=== PATIENT | female | born 1960 | race African-American/Black ===

== ENCOUNTER 2017-11-25 17:02 | Emergency (ER) | payer BC ==
[~2017-11-25] VITALS: Ht 157.5 cm; Wt 91.2 kg
[2017-11-25] MEDS ORDERED: COZAAR 25 MG TA25 M1 PO (17:59)
[2017-11-25] MEDS ORDERED: JANUVIA100 MG PO (17:59)
[2017-11-25] MEDS ORDERED: NORVASC5 MG PO (17:59)
[2017-11-25] MEDS ORDERED: GLYBURIDE 2.52.5 MG (17:59)
[2017-11-25] MEDS ORDERED: ZOFRAN ODT4 MG PO ×2 (18:00→23:51)
[2017-11-25] MEDS ORDERED: MIRALAX17 G1 PO (18:00)
[2017-11-25 18:41] LABS: URINE BILIRUBIN 1+ (Negative); URINE BLOOD TRACE (Negative); URINE CLARITY CLEAR; URINE COLOR YELLOW; URINE GLUCOSE-RANDOM* 3+ (Negative); URINE KETONES 3+ (Negative); URINE LEUKOCYTES-REFLEX NEGATIVE (Negative); URINE NITRITE-REFLEX NEGATIVE (Negative); URINE PROTEIN (DIPSTICK) 2+ (Negative); URINE SPECIFIC GRAVITY 1.025 (1.005-1.035); URINE UROBILINOGEN 0.2 E.U./dl (0.2-1.0)
[2017-11-25 18:46] LABS: ICTOTEST (BILI CONFIRMATORY) Negative (Negative)
[2017-11-25 18:53] LABS: BACTERIA-REFLEX None Seen /HPF (None Seen); CASTS None Seen /LPF (None Seen); CRYSTALS None Seen /LPF (None Seen); MUCUS >6 Heavy strn/LPF (None Seen); SQUAMOUS 4-10 Moderate /LPF (0-3); URINE RBC None Seen /HPF (0-2); URINE WBC-REFLEX 0-5 Rare /HPF (0-5); YEAST-REFLEX Present (None Seen)
[2017-11-25 19:27] LABS: ABSOLUTE NEUTROPHILS 6.1 thou/uL (1.4-8.2); BASOPHILS 0.6 % (0.0-2.0); HEMATOCRIT 44.7 % (37.0-47.0); HEMOGLOBIN 15.3 gm/dL (12.0-15.0); LYMPHOCYTES 21.8 % (24.0-44.0); MCH 29.4 pg (26.0-34.0); MCHC 34.1 g/dL (28.0-37.0); MCV 86.4 fL (80.0-100.0); PLATELET COUNT 294 thou/uL (150-400); POLYS 68.6 % (36.0-66.0); RBC 5.18 mil/uL (4.20-5.00); RDW 14.3 % (10.5-14.5); WBC 8.8 thou/uL (4.0-11.0)
[2017-11-25 19:32] LABS: CALCIUM 9.1 mg/dL (8.5-10.1); POTASSIUM 3.3 mmol/L (3.5-5.1)
[2017-11-25 19:38] LABS: DIRECT BILIRUBIN 0.1 mg/dL (<0.1-0.3); TOTAL BILIRUBIN 0.7 mg/dL (<0.1-1.0); TOTAL PROTEIN 8.4 g/dL (6.4-8.2)
[2017-11-25] MEDS ORDERED: IBUPROFEN 400400 M2 PO (23:36)
[2017-11-25] MEDS ORDERED: NORCO 5-325 TA1 EACH PO (23:51)
[2017-11-26 00:04] VITALS: BP 152/94
== END 2017-11-26 00:06 | disposition home or self-care (01) ==
LOC: ER 17:02
PROVIDERS: Emergency Medicine
DX: G57.21 Lesion of femoral nerve, right lower limb (principal); D25.9 Leiomyoma of uterus, unspecified; E11.9 Type 2 diabetes mellitus without complications; I10 Essential (primary) hypertension; Z91.041 Radiographic dye allergy status